=== PATIENT | male | born 1965 | race African-American/Black ===

== ENCOUNTER 2025-01-21 22:55 | Inpatient (IN) | payer MEDICAID ==
[2025-01-22] MEDS ORDERED: Ondansetron PF 4 MG/2 ML Vial IVP PRN (00:35)
[2025-01-22] MEDS ORDERED: Acetaminophen 325 MG TAB PO PRN (00:35)
[2025-01-22 00:38] VITALS: BMI 35.2
[2025-01-22] MEDS ORDERED: Electrolyte Replacement Protocol 1 EACH IVPB ONE (00:38)
[2025-01-22] MEDS ORDERED: Dextrose 50% Abboject 50 ML SYRINGE SLOW IVP PRN ×2 (00:38→06:02)
[2025-01-22] MEDS ORDERED: NS 0.9% w/ 20 MEQ KCL 1,000 ML IV PRN ×2 (00:38)
[2025-01-22] MEDS ORDERED: INSULIN REGULAR IN 0.9 % NACL 100 ML IVPB SCH (00:45)
[2025-01-22 00:46] VITALS: BP 162/74
[2025-01-22] MEDS: D5 1/2 NS w/20 mEq KCL 1,000 ML IV PRN (01:38)
[2025-01-22 01:47] LABS: Magnesium 2.1 mg/dL (1.6-2.6)
[2025-01-22] MEDS ORDERED: Potassium Chloride 20 MEQ in Premix 1 BAG IVPB PRN (02:00)
[2025-01-22] MEDS ORDERED: PHOS-NAK 1 PKT PACK PO PRN (02:00)
[2025-01-22] MEDS ORDERED: Magnesium 2 GM/50 ML(in water) 2 GM in Premix 1 BAG IVPB PRN (02:00)
[2025-01-22] MEDS: FLU (Fluarix Triv) 25-26 (6MOS UP)/PF 45 MCG/0.5 ML Syringe IM ONE (02:23)
[2025-01-22] MEDS: Mupirocin 1 GM TUBE TP SCH (02:27)
[2025-01-22 02:37] LABS: Anion Gap 17 mmol/L (10-20); BUN (Urea Nitrogen) 22 mg/dL (8.4-25.7); Calc. Creatinine Clearance 79 mL/min (70-130); Calcium 8.8 mg/dL (7.8-10.44); Carbon Dioxide 22 mmol/L (22-29); Chloride 104 mmol/L (98-107); Glucose 179 mg/dL (70-105); Potassium 3.6 mmol/L (3.5-5.1); Sodium 139 mmol/L (136-145)
[2025-01-22] MEDS: Potassium Phosphate 22 MMOL in Sodium Chloride 0.9% 250 ML 250 ML IVPB SCH (03:06)
[2025-01-22 05:41] LABS: #Basophils Less than 0.03 10x3/uL (0.0-0.2); #Eosinophils 0.09 10x3/uL (0.0-0.5); #Monocytes 0.86 10x3/uL (0.0-1.1); #Neutrophils 5.56 10x3/uL (1.5-8.4); %Basophils 0.2 % (0.0-2.0); %Eosinophils 1.1 % (0.0-6.0); %Lymphocytes 18.8 % (18.0-47.0); %Monocytes 10.6 % (0.0-10.0); %Neutrophils 68.9 % (40.0-75.0); Hematocrit 39.4 % (38.8-50.0); Hemoglobin 13.7 g/dL (13.5-17.5); Mean Corpuscular Hemoglobin 30.0 pg (27.0-33.0); Mean Corpuscular Volume 86.4 fL (81.2-95.1); Platelet Count 290 10x3/uL (150-450); Red Blood Cell (RBC) Count 4.56 10x6/uL (4.32-5.72); White Blood Cell (WBC) Count 8.08 10x3/uL (3.5-10.5)
[2025-01-22 05:53] LABS: Anion Gap 14 mmol/L (10-20); BUN (Urea Nitrogen) 18 mg/dL (8.4-25.7); Calc. Creatinine Clearance 87 mL/min (70-130); Calcium 8.6 mg/dL (7.8-10.44); Carbon Dioxide 24 mmol/L (22-29); Chloride 106 mmol/L (98-107); Glucose 155 mg/dL (70-105); Potassium 3.6 mmol/L (3.5-5.1); Sodium 140 mmol/L (136-145); Vancomycin, Random 17.9 ug/mL (See Comment)
[2025-01-22] MEDS ORDERED: Glucagon 1 MG/ML KIT IM PRN (06:02)
[2025-01-22] MEDS: Lantus 1000 UNITS/10 ML VIAL SC SCH (06:23)
[2025-01-22 06:45] LABS: Magnesium 2.0 mg/dL (1.6-2.6)
[2025-01-22] MEDS: Metoprolol Succinate XL 25 MG ER.TAB PO SCH (07:45)
[2025-01-22] MEDS: Vancomycin HCl 750 MG in Sodium Chloride 0.9% 250 ML 250 ML IVPB SCH (07:45)
[2025-01-22] MEDS: Enoxaparin 40 MG (0.4 mL) SYRINGE SC SCH (07:46)
[2025-01-22] MEDS: Floranex 1 GM Packet PO SCH (10:10)
[2025-01-22] MEDS: Clindamycin 150 MG CAP PO SCH (10:10)
[2025-01-22] MEDS ORDERED: VANCOMYCIN 1.75 GM/350 ML BAG 1.75 GM in Premix 1 BAG IVPB SCH (12:00)
[2025-01-22 12:30] VITALS: TEMP 98.4
[2025-01-22 14:04] VITALS: BMI 34.8
[2025-01-23] MEDS ORDERED: Aspirin 81 mg Enteric Coated Tablet PO SCH (09:00)
[2025-01-23] MEDS ORDERED: Floranex 1 GM Packet PO SCH (09:00)
[2025-01-23] MEDS ORDERED: Lantus 1000 UNITS/10 ML VIAL SC SCH (09:00)
== END 2025-01-22 18:05 | disposition home or self-care (01) | DRG 638 ==
LOC: CSHICU 01-22 00:11
PROVIDERS: ADMIT Internal Medicine; ATTEND Family Medicine
DX: E11.10 Type 2 diabetes mellitus with ketoacidosis without coma (principal); N17.9 Acute kidney failure, unspecified; N18.9 Chronic kidney disease, unspecified; I12.9 Hypertensive chronic kidney disease with stage 1 through stage 4 chronic kidney disease, or unspecified chronic kidney disease; Z98.890 Other specified postprocedural states; Z23 Encounter for immunization
CPT/HCPCS: 36415; 36416; 80202; 83036; 83735; 84100; 94760; 97139; J1650; J1815; J3373; J3480; J7050